=== PATIENT | female | born 1990 ===

== ENCOUNTER 2020-01-22 16:05 | Observation (INO) | payer SELFPAY ==
[2020-01-22 16:11] VITALS: BP 136/68; PULSE 80; RESP 18; TEMP 36.7
--- NOTE | 2020-01-22 16:11 | USR_ITS ---
PROCEDURE INFORMATION: Exam: US After First Trimester, Transabdominal Exam date and time: 01/22/2020 4:19 PM Age: 29 years old Clinical indication: complicated by abdominal or pelvic pain; Generalized abdominal pain; Second trimester; Gestational age or lmp: 22w5d; ; Additional info: Unknown edc TECHNIQUE: Imaging protocol: Real-time transabdominal obstetrical ultrasound of the maternal pelvis and a second or third trimester with image documentation. COMPARISON: No relevant prior studies available. FINDINGS: Gestation: Single intrauterine gestation. heart rate: 144 bpm. Presentation: Cephalic. Placenta: Posterior and grade 0. Amniotic fluid: Amniotic fluid is normal for gestational age. ANATOMY: Midline falx: Normal. Cerebellum: Normal. Cerebral ventricles: Normal. Cisterna magna: Normal. Choroid plexus: 0.9 cm right choroid plexus cyst. Septum pellucidum: Normal. Upper lip and nose: Suboptimally visualized. Heart four-chamber view, heart size and position: Normal. kidneys: Normal. stomach: Normal. urinary bladder: Normal. Spine: Normal. Umbilical cord insertion site into the abdomen: Normal. Umbilical cord vessel number: Normal three-vessel cord. Arms and hands: The arms are normal. The hands are suboptimally visualized. Legs and feet: The legs are normal. The feet are suboptimally visualized. external genitalia: Gender: Male. BIOMETRY: Gestational age (AUA): 22 weeks 5 days Estimated due date (AUA): Estimated due date 05/22/2020. Estimated weight: 543 g, 1 lb 3 oz Biparietal diameter: 5.29 cm, 22 weeks 0 days Head circumference: 20.23 cm, 22 weeks 3 days Abdominal circumference: 17.66 cm, 22 weeks 4 days Femur length: 4.16 cm, 23 weeks 4 days MATERNAL ANATOMY: Uterus: Unremarkable. Cervix: 4.5 cm in length and closed. Right adnexa: Ovary is obscured by overlying bowel gas. Left adnexa: Ovary is obscured by overlying bowel gas. US/US OB >= 14 weeks fetus [id number] IMPRESSION: 1. Single living intrauterine gestation estimated at 22 weeks 5 days. 2. No abnormality identified.
[2020-01-22 16:41] VITALS: BMI 28.3
[2020-01-22 17:20] LABS: Bilirubin Urine Neg (Negative); Blood Urine Neg (Negative); Glucose Urine UA Norm (Normal); Ketones Urine Negative (Negative); Leukocyte Esterase Urine Negative (Negative); Nitrate Urine Negative (Negative); Protein Urine Neg (Negative); Sulfosalicylic Acid Urine Negative (Negative); Urine Appearance Clear (CLEAR); Urine Color Straw (Yellow); Urobilinogen Urine Norm (Negative); pH Urine 8 (5-7)
[2020-01-22 17:21] LABS: Add Urine Culture? No; Bacteria Urine TRACE /hpf; Squamous Epithelial Cell Urine 0-4 /hpf (0-5); WBC Urine 0-4 /hpf (0-5)
[2020-01-22 17:57] LABS: Hepatitis B Surface Antigen Non-Reactive (Nonreactive)
[2020-01-22 17:59] LABS: Rubella IgG 258.1 IU/mL (0.0-10.0)
--- NOTE | 2020-01-22 17:59 | PC.NURSE ---
PT CAME IN BY AMBULANCE AT 1600 WITH C/O OF STRONG CRAMPING THAT STARTED ABOUT 1 HOUR, STATED THAT SHE DIDN'T HAE ANY IDEA WHEN SHE WAS DUE. PT STATES THAT SHE HAS BEEN IN LONG-TERM FOR 2 WEEKS AND HAS NOT DONE METH IN 4 MONTHS. SHE STATES THAT SHE DOES NOT HAVE CUSTODY OF ANY OF HER KIDS, 1ST 2 HAVE BEEN ADOPTED OUT BY FAMILY IN [facility] AND LAST ONE DAD IS TRYING TO GET CUSTODY OF, SHES STATES THAT SHE NEVER GOES HOME WITH HER CHILDREN. ALSO SHE HAS 3 WARRANTS OUT AND THAT WHEN SHE IS REELASED FROM [facility] SHE IS GOING TO [place] AND THEN TO ANOTHER [facility]. TALKED WITH HER ABOUT GETTING HER LIFE TOGETHER AND OFFERED TO GIVE HER SOME PLACED AND SHE SAID THAT SHE HAD NUMBERS, THIS SPRAY STAINER CALLED AND GAVE DR. JAMESON FULL REPORT AND HE STATD THAT HE COULD BE DISCHARGED SINCE SHE WAS ALMOST INSTANTLY BETTER WHEN SHE FOUND OUT [facility] WAS CLOSED AND I FOUND HEARTBEAT. LIST OF DOCTORS GIVEN AND HOME CARE INSTRUCTIONS GIVEN WELL AND THEN PATIENT DISCHARGED TO [facility] OFFICER WHO CAME IN WITH HER. PT WAS HANDCUFFED AT DISCHARGE AND ESCORTED OUT BY OFFICER.
[2020-01-22 18:01] LABS: Rapid Plasma Reagin Syphilis Nonreactive (Nonreactive)
[2020-01-22 18:02] LABS: HIV 1 & 2 Antibody Non-Reactive (Non-Reactiv); HIV 1 & 2 Antigen Non-Reactive (Non-Reactiv)
--- NOTE | 2020-01-22 18:12 | PC.NURSE ---
PT CAME IN WITH IV IN RIGHT HAND, LABS DRAWN OFF SITE AND THEN IV WAS REMOVED WITH CATH INTACT PRIOR TO HER DISCHARGE.
[2020-01-22 18:39] VITALS: BP 136/68; PULSE 80; RESP 18; TEMP 36.7
[2020-01-22 18:53] LABS: Amphetamines Screen Urine Negative (Negative); Barbiturates Screen Urine Negative (Negative); Benzodiazepines Screen Urine Negative (Negative); Cocaine Screen Urine Negative (Negative); Opiate Screen Urine Negative (Negative); PCP Screen Urine Negative (Negative); THC Screen Urine Positive (Negative)
== END 2020-01-22 17:05 | disposition home or self-care (01) ==
PROVIDERS: Admitting Provider Family Medicine; PCP Family Medicine; Visit Provider Family Medicine
DX: O26.899 Other specified pregnancy related conditions, unspecified trimester (principal); Z3A.00 Weeks of gestation of pregnancy not specified; R52 Pain, unspecified
CPT/HCPCS: 36415; 76805; 80306; 81001; 86592; 86762; 86850; 86900; 87340; 87491; 87591; 87806; 99211; G0378; G0379